=== PATIENT | female | born 1975 | race African-American/Black ===

== ENCOUNTER → 2021-01-30 | Outpatient (CLI) | payer BC ==
--- NOTE | 2021-01-30 14:28 | KCIC ---
Bilateral digital screening mammograms: Reason for examination: Routine baseline screening. Interpretation was made with the benefit of CAD. The skin and nipples show no abnormalities. No abnormal lymph nodes are seen. The breast parenchyma i s predominantly fatty. (Breast density: Category A.) There are postoperative changes from breast redu ction. Anterior laterally in the left breast on cc view approximately 5.5 cm from the nipple, there d oes appear to be a small 8 mm nodule present. This may be related to previous breast reduction change s but recommend further evaluation with ultrasound. There are no other dominant masses, suspicious ca lcifications or architectural distortions. Scattered benign calcifications are seen. Impression: Small 8 mm nodular density seen anterior laterally in the left breast on cc view. Recommend further e valuation with ultrasound. BI-RADS Category 0: Incomplete. Needs additional imaging evaluation. "Our facility is accredited by the [employer] Mammography [employer]." This patient's information has been entered into a reminder system for the patient to be notified wit h the results of her examination and a target date for the next mammogram. Electronically signed by: Carly Camacho MD (01/30/2021 2:25 PM) [id number]
== END ==
LOC: KCIC MAMMO 13:22
PROVIDERS: ATTEND Family Medicine
DX: Z12.31 Encounter for screening mammogram for malignant neoplasm of breast (principal); N63.20 Unspecified lump in the left breast, unspecified quadrant
CPT/HCPCS: 77067

== ENCOUNTER → 2021-03-28 | Outpatient (CLI) | payer BC ==
--- NOTE | 2021-03-28 11:44 | KCIC ---
Left breast ultrasound: Reason for examination: Nodular asymmetry on screening mammogram. Comparison is mammographic exam dated 01/30/2021. Ultrasound examination of the left breast and axilla was performed. No discrete cystic or solid nodules are seen. No abnormal appearing lymph nodes are seen in the axill a. IMPRESSION: No focal abnormality seen sonographically in the left breast to correspond with the density seen mamm ographically however considering the 2 month interval between the mammographic and sonographic exams, this could have represented a cyst or fibrocystic lesion which has regressed. Reevaluation with left breast mammograms and ultrasound in 6 months is recommended. BI-RADS Category 3: Probably Benign. "Our facility is accredited by the [employer] Mammography [employer]." This patient's information has been entered into a reminder system for the patient to be notified wit h the results of her examination and a target date for the next mammogram. Electronically signed by: Carly Camacho MD (03/28/2021 11:42 AM) [email or web address]
== END ==
LOC: KCIC US 10:45
PROVIDERS: ATTEND Family Medicine
DX: R92.8 Other abnormal and inconclusive findings on diagnostic imaging of breast (principal)
CPT/HCPCS: 76641